=== PATIENT | female | born 1950 | race Caucasian/White ===

== ENCOUNTER 2016-09-29 09:50 | Outpatient (CLI) | payer OTHER ==
[2015-04-08 06:30] VITALS: BP 145/71
--- NOTE | 2016-09-30 11:19 | OP Clinic Progress Note ---
REFERRING PHYSICIAN: Dr. Nathalie Hernandez REASON FOR VISIT: Tiara Candelaria returns for follow up of seropositive rheumatoid arthritis and doing quite well. She is back on her Humira. She did not have it for 2 months due to insurance issues. Presently, she is not having any joint swelling, warmth, tenderness, morning stiffness or pain. Her right wrist is significantly improved since I put her back on 5 mg of prednisone. Back pain continues to be issue. She brings me copies of x-rays of her thoracic lumbar spine with hardware, which I had a chance to review. PAST MEDICAL HISTORY: 1. Hypertension. 2. Hyperlipidemia. 3. Sleep apnea. 4. GERD. 5. Osteoarthritis. 6. Rheumatoid arthritis. 7. Diabetes. 8. Hypothyroidism. PAST SURGICAL HISTORY: 1. Total knee replacement. 2. Hysterectomy. 3. . 4. Cholecystectomy. 5. Appendectomy. 6. Lumbar laminectomy, fusion, and hardware. ALLERGIES: 1. Cephalosporins. 2. Sulfa drugs. PRESENT MEDICATIONS: 1. Tenormin 50 mg daily. 2. Feosol 325 mg daily. 3. HydroDIURIL. 4. Synthroid 50 mcg daily. 5. Metformin 500 mg twice a day. 6. Humira 40 mg subcutaneous every other week. 7. Forteo daily. SOCIAL HISTORY: She is a ex-smoker. She is a retired brush clearing laborer. She is . REVIEW OF SYSTEMS: No fevers, chills, sweats, chest pain, shortness of breath, cough, wheezing, nausea or vomiting. No numbness or tingling of the extremities. She is using a cane. She has had no falls. PHYSICAL EXAMINATION: VITAL SIGNS: Weight: 180 pounds. Height: 5 feet 3 inches. T: 97.6, R: 12, Heart rate 68, BP: 167/80. HEENT: Sclerae are anicteric. Conjunctivae are pink. No stomatitis or glossitis. LUNGS: Clear bilaterally with no crackles or wheezing. HEART: Regular rhythm. Normal S1 and S2. ABDOMEN: Soft and nontender. VASCULAR: No edema or cyanosis. PERIPHERAL JOINTS: No synovitis at the DIPs, PIPs, MCPs, wrists, elbows, shoulders, hips, knees, ankles, and feet. Note her wrists are partially fused. She has severe restriction in lumbar and thoracic flexion and extension. DIAGNOSTIC STUDIES: Her labs from August 10 are reviewed. CBC was unremarkable. Sed rate was 25 and TSH was 1.5. IMPRESSION: 1. Seropositive rheumatoid arthritis at multiple sites, stable, on Humira. 2. High risk drug, no evidence of toxicity. 3. Chronic low back pain, status post laminectomy, fusion, and hardware. 4. Osteoporosis. Thank you very much. Best regards, cc: Dr. Nathalie SMALLS
== END 2016-09-29 09:52 ==
LOC: RHEU 09:50
PROVIDERS: ATTEND Internal Medicine
DX: M05.9 Rheumatoid arthritis with rheumatoid factor, unspecified (principal)
CPT/HCPCS: 99214; G0463

== ENCOUNTER 2016-10-12 12:56 | Outpatient (CLI) | payer OTHER ==
[2015-04-08 06:30] VITALS: BP 145/71
== END 2016-10-12 12:57 ==
LOC: PULMONARY 12:56
PROVIDERS: ATTEND Internal Medicine Critical Care Medicine
DX: G47.33 Obstructive sleep apnea (adult) (pediatric) (principal)
CPT/HCPCS: 99214; G0463

== ENCOUNTER → 2017-03-30 | Outpatient (CLI) | payer OTHER ==
[2015-04-08 06:30] VITALS: BP 145/71
--- NOTE | 2017-03-30 12:00 | OP Clinic Progress Note ---
REASON FOR VISIT: Tiara Candelaria returns for follow up on her seropositive rheumatoid arthritis. She is doing well on Humira alone having failed previous synthetic-disease modifying agents. She has no significant joint swelling, warmth, tenderness, morning stiffness. or pain. She still requires 5 mg of prednisone. Back pain has been stable. She has been under a little stress. Demetrius fell off the roof 12 feet onto his shoulder but he is doing better. He will have surgery on his shoulder. Otherwise, rest of the systems reviewed, no fevers, chills, sweats, chest pain, shortness of breath, cough, wheezing, nausea, vomiting, or diarrhea. PAST MEDICAL HISTORY: 1. Hypertension. 2. Hyperlipidemia. 3. Sleep apnea. 4. GERD. 5. Osteoarthritis. 6. Rheumatoid arthritis. 7. Diabetes. 8. Hypothyroidism. PAST SURGICAL HISTORY: 1. Total knee replacement. 2. Hysterectomy. 3. . 4. Cholecystectomy. 5. Appendectomy. 6. Lumbar laminectomy, fusion, and hardware. PRESENT MEDICATIONS: 1. Tenormin 50 mg daily. 2. Feosol 325 mg daily. 3. HydroDIURIL. 4. Synthroid 50 mcg daily. 5. Metformin 500 mg twice a day. 6. Humira 40 mg subcutaneous every other week. 7. Forteo subcutaneously daily. ALLERGIES: 1. Cephalosporins. 2. Sulfa drugs. SOCIAL HISTORY: She is an ex-smoker. She is a retired lab instructor. PHYSICAL EXAMINATION: GENERAL: On exam, she looks well. VITAL SIGNS: Weight: 180. T: 96.3, R: 20, heart rate of 87, BP: 150/75. HEENT: Sclerae are anicteric. Conjunctivae are pink. No stomatitis or glossitis. LUNGS: Clear bilaterally with no crackles or wheezing. HEART: Regular rate and rhythm. ABDOMEN: Soft and nontender. VASCULAR: No edema or cyanosis. PERIPHERAL JOINTS: No synovitis at the DIPs, PIPs, MCPs, wrists, elbows, shoulders, hips, knees, ankles, and feet. IMPRESSION: Seropositive rheumatoid arthritis, active and stable on the present regimen. No need for changes. She had labs done with her primary care physician. She is up to date on her vaccinations. PLAN: I will see her back in 6 months. Thank you very much. Best regards, cc: Dr. Nathalie Hernandez [facility]ITAL[facility]lya
== END ==
LOC: RHEU 09:23
PROVIDERS: ATTEND Internal Medicine
DX: M05.89 Other rheumatoid arthritis with rheumatoid factor of multiple sites (principal)
CPT/HCPCS: 99214; G0463

== ENCOUNTER 2017-09-28 08:54 | Outpatient (CLI) | payer OTHER ==
[2017-06-26 06:16] VITALS: BP 117/74
--- NOTE | 2017-10-01 10:17 | OP Clinic Progress Note ---
REASON FOR VISIT: Tiara Candelaria returns for follow up of seropositive rheumatoid arthritis. She is doing well from that point of view with no significant joint swelling, warmth, tenderness, or morning stiffness. No new deformities. She continues to use a walker with no great difficulty. She is presently on Humira alone. Since I last saw her, she was admitted to the hospital for a COPD exacerbation in the context of influenza B. She does seem to be significantly better and presently, she has no fever, chills, sweats, or chest pain and her shortness of breath has improved. She is not coughing or wheezing. No nausea, vomiting, or diarrhea. No numbness or tingling of her extremities. PAST MEDICAL HISTORY: 1. Hypertension. 2. Hyperlipidemia. 3. Sleep apnea. 4. GERD. 5. Osteoarthritis. 6. Rheumatoid arthritis. 7. Diabetes. 8. Hypothyroidism. 9. COPD. PAST SURGICAL HISTORY: 1. Total knee replacement. 2. Hysterectomy. 3. . 4. Cholecystectomy. 5. Appendectomy. 6. Lumbar laminectomy with fusion and hardware. PRESENT MEDICATIONS: 1. Humira 40 mg subcutaneous every other week. 2. Zoloft 100 mg daily. 3. Metformin 500 mg twice a day. 4. Synthroid 50 mcg daily. 5. Hydrochlorothiazide 25 mg daily. 6. Feosol 325 mg once a day. 7. Atenolol 50 mg twice a day. 8. Vitamin C 1000 mg daily. 9. Lisinopril 5 mg daily. 10. Loratadine as needed. 11. Magnesium oxide. 12. Omeprazole as needed. ALLERGIES: 1. Cephalosporin. 2. Sulfa antibiotics. PHYSICAL EXAMINATION: GENERAL: She is in no distress. VITAL SIGNS: T: 96.1, R: 20, heart rate 87, BP: 165/80. Room air pulse oximetry was 95%. HEENT: Sclerae are anicteric. Conjunctivae are pink. No stomatitis or glossitis. She is a little bit cushingoid. LUNGS: Clear bilaterally with no crackles or wheezing. HEART: Regular rate and rhythm. ABDOMEN: Soft and nontender. VASCULAR: No edema or cyanosis. PERIPHERAL JOINTS: Shows no active synovitis at the MCPs or wrists. However, she has fusion of her wrists. Elbows show some bursal swelling but no definite fluid. She has got a few ulcers healing on the right, worse on the left. Hips , knees, ankles, and feet are nontender. Note, she has decrease sensation of her lower extremities. IMPRESSION: 1. Seropositive rheumatoid arthritis, active and stable. Doing well. 2. High risk drug. No evidence of toxicity. 3. Chronic obstructive pulmonary disease (COPD), worse. 4. Rheumatoid nodulosis of both elbows. 5. Apparent neuropathy of lower extremities. PLAN: 1. I have asked her to wear elbow pads. 2. I will see her back in 6 months. Thank you very much. cc: Dr. Nathalie SMALLS
== END 2017-09-28 10:58 ==
LOC: RHEU 08:54
PROVIDERS: ATTEND Internal Medicine
DX: M06.9 Rheumatoid arthritis, unspecified (principal); Z79.899 Other long term (current) drug therapy; J44.9 Chronic obstructive pulmonary disease, unspecified; M06.321 Rheumatoid nodule, right elbow; M06.322 Rheumatoid nodule, left elbow
CPT/HCPCS: 99214; G0463

== ENCOUNTER 2018-04-26 08:55 | Outpatient (CLI) | payer OTHER ==
[2017-06-26 06:16] VITALS: BP 117/74
--- NOTE | 2018-04-26 15:19 | OP Clinic Progress Note ---
REASON FOR VISIT: Tiara Candelaria returns for follow up of seropositive rheumatoid arthritis. She was well when I last saw her in September. She has been taking Humira alone at that time. However, in February, she had surgery and her Humira was held. This was followed by a severe flare which was incapacitating. She bumped up her prednisone to 10 mg twice a day and has resumed her Humira. Her surgery involved revision of a past lumbar laminectomy, fusion, and hardware. This occurred on March 04. It has been beneficial. She presently has no pain in her back or radiating down the legs. She has had no further COPD exacerbation. Presently, she is not having any joint swelling, warmth, tenderness, morning stiffness, or pain, and no fever, chills, sweats, chest pain, shortness of breath, cough, wheezing, nausea, vomiting, or diarrhea. She continues to use a wheeled walker. ALLERGIES: She is allergic to: 1. Cephalosporins. 2. Sulfa antibiotics. PRESENT MEDICATIONS: 1. Humira 40 mg subcutaneous every other week. 2. Prednisone 10 mg twice a day. 3. Zoloft 100 mg daily. 4. Metformin 500 mg twice a day. 5. Synthroid 50 mcg daily. 6. Hydrochlorothiazide 25 mg daily. 7. Feosol 325 mg once a day. 8. Atenolol 50 mg twice a day. 9. Vitamin C. 10. Lisinopril 5 mg daily. 11. Loratadine. 12. Magnesium oxide. 13. Omeprazole. PAST MEDICAL HISTORY: 1. Hypertension. 2. Hyperlipidemia. 3. Sleep apnea. 4. GERD. 5. COPD. 6. Hypothyroidism. 7. Diabetes. 8. Rheumatoid arthritis. 9. Osteoarthritis. PAST SURGICAL HISTORY: 1. Total knee replacement. 2. Hysterectomy. 3. . 4. Cholecystectomy. 5. Appendectomy. 6. Lumbar laminectomy with fusion and hardware with recent revision. PHYSICAL EXAMINATION: GENERAL: She is comfortable. VITAL SIGNS: Weight: 175. T: 97.9, P: 70, R: 20, BP: 170/74 HEENT: Sclerae are anicteric. Conjunctivae are pink. No stomatitis or glossitis. LUNGS: Clear with no crackles or wheezing. HEART: Regular rate and rhythm. No extra heart sounds. ABDOMEN: Soft and nontender. VASCULAR: No edema or cyanosis. PERIPHERAL JOINTS: No synovitis at the DIPs, PIPs, MCPs, wrists, elbows, shoulders, hips, knees, ankles, and feet. She does have some swelling at the olecranon bursa. She has near fusion in both wrists. Hot Shot strength is about 4/5. IMPRESSION: 1. Seropositive rheumatoid arthritis, active. 2. Chronic obstructive pulmonary disease, stable. 3. Rheumatoid nodulosis, stable. PLAN: 1. Continue Humira. 2. I want her to start tapering her prednisone by 5 mg weekly. 3. I am going to see her back in 8 weeks. 4. If she fails to do so, we will need to consider adding disease-modifying agent to her biologic therapy. cc: Dr. Nathalie SMALLS
== END 2018-04-26 09:00 | disposition home or self-care (01) ==
LOC: RHEU 08:55
PROVIDERS: ATTEND Internal Medicine
DX: M05.9 Rheumatoid arthritis with rheumatoid factor, unspecified (principal); J44.9 Chronic obstructive pulmonary disease, unspecified
CPT/HCPCS: 99212; 99213; G0463

== ENCOUNTER 2018-12-02 16:10 | Outpatient (CLI) | payer OTHER ==
[2017-06-26 06:16] VITALS: BP 117/74
--- NOTE | 2018-12-03 06:26 | Diagnostic Imaging Report ---
TRACI ESQUIVEL (WING) - OP [facility] [id number] [id number] Report Submission Date: Dec 02, 2018 6:09:41 PM CDT Patient Study Name: ZEESHAN RIGGS Date: Dec 02, 2018 4:22:26 PM CDT Modality Type: DX Gender: F Description: FOOT 3 VIEWS OR MORE : 52 Institution: [facility] Physician: TRACI ESQUIVEL) - OP Exam: Left foot. History: 2Nd toe ulceration. AP, lateral and oblique view of the left foot are submitted. Questionable erosive changes at the head of the 1st metatarsal is noted. Subluxation at the 2nd metatarsophalangeal joint is noted. Degenerate changes at remaining interphalangeal joints are noted. Soft tissue swelling over the 2nd digit is noted. Degenerate changes at the talonavicular joint is also noted. Spur off the plantar surface of the calcaneus is noted. Impression: Questionable erosive changes at the head of the 1st metatarsal. Soft tissue swelling over the 2nd digit. Questionable subluxation at the 2nd metatarsophalangeal joint. Three Phase scintigraphy or MRI may be beneficial to further evaluate. Electronically signed on Dec 02, 2018 6:09:41 PM CDT by: Manpreet SMALLS
== END 2018-12-02 16:12 ==
LOC: RAD 16:10
PROVIDERS: ATTEND Nurse Practitioner Family
DX: L97.529 Non-pressure chronic ulcer of other part of left foot with unspecified severity (principal)
CPT/HCPCS: 73630

== ENCOUNTER 2018-12-05 10:29 | Outpatient (CLI) | payer OTHER ==
[2017-06-26 06:16] VITALS: BP 117/74
--- NOTE | 2018-12-13 07:57 | OP Clinic Progress Note ---
DATE OF VISIT: 12/05/2018 SUBJECTIVE: Tiara Candelaria is a 68-year-old female presenting today in a wheelchair with I believe a family member for a referral from Anay Sterling NP for a left second toe ulcer that has been present for 6-8 weeks. The patient has had this ulcer for 6-8 weeks and they have been treating with peroxide wash as well as antibiotic ointment and a Band-Aid daily. She has had a hammertoe contracture of the second toe which is overriding the first toe for over 1 year and the second toe began having a red appearance to it about 6-8 weeks ago. She has obtained x- rays with questionable erosive changes at the head of the first metatarsal which is not of any strong concern at this time. She also has subluxation at the second metatarsophalangeal joint noted of the left foot and degenerative changes in the IPJs of the toe. She also has soft tissue swelling of the second toe. Degenerative changes are also noted at the talonavicular joint which is not of any great concern to the patient right now. MRI or 3-phase bone scan may be beneficial for further evaluation according to the radiologist. There was no MRI that has been performed at this time. The patient is here for establishing care for this left second toe. She suggests that she is fine if this toe needs to be amputated and she is ready to do that if needed. The patient has had a recent pneumonia about 1 month ago when she had a chest x- ray done at that time. She denies any cardiac issues. She does admit to a heart murmur which was present when she was born and has not been anything significant. She admits to rheumatoid arthritis, diabetes mellitus, blood pressure issues, thyroid issues, increased cholesterol issues and sleep apnea for which she uses a CPAP nightly. She has had recent eye surgery by Dr. Mcmanus at [facility] and has had complications with that requiring 1 or 2 emergent repeat surgeries. She currently has a patch over her eye at this time. Her primary care physician is Anay Sterling NP. The patient does not admit to any fevers, chills, nausea, vomiting, shortness of breath or chest pain at this time. OBJECTIVE: Vitals: Temperature 98.0, heart rate 93, respiration rate 16, blood pressure 117/70. O2 saturation is 90% on room air. Vascular: Slightly palpable 1+ DP and PT pulses, left foot. Capillary refill time is less than 3 seconds to the toes and is quite brisk, even at the second toe, left foot. There is no hair growth noted. There is mild edema noted at the left second toe. There is no other significant edema noted. Dermatologic: There is a small ulcer overlying the left second toe proximal interphalangeal joint. This ulcer probed directly to bone which is easily palpated and actually able to be visualized. There is no purulence or malodor noted. There is mild serous drainage from the wound and bubbles with mobility of that joint. It should be noted her most recent x-rays were obtained quite recently on 12/02/18. It does not appear that there has been any significant change since her most recent time of x-rays clinically. There are no other skin lesions or open lesions noted to the left foot. There is mild warmth and definite erythema noted to the left second toe. There is no purulence noted. Musculoskeletal: There is digital contracture noted at the second MPJ with dorsiflexion contracture as well as plantar flexion contracture at the PIPJ of the left second toe. This toe is overriding the first toe slightly. There are also digital contractures noted at toes 3, 4 and 5 as well as hallux valgus deformity of the left great toe which is somewhat mild. Neurologic: Light touch sensation is absent in the left foot. ASSESSMENT AND PLAN: 1. Left second toe diabetic foot ulcer. 2. Left hammertoes #2 through #5. 3. Left hallux valgus. 4. Diabetes mellitus type 2. 5. Peripheral neuropathy, left lower extremity. 6. Rheumatoid arthritis. PROCEDURE #1: Sharp debridement of left second toe ulcer dorsal PIPJ with a #15 blade was performed to muscle layer. The edges of the wound were also debrided giving evidence to minor bleeding which is a positive thing. Bleeding was controlled with pressure. Dressings were applied consisting of triple antibiotic ointment and a Band-Aid. The patient will continue to treat this with antibiotic ointment and a Band-Aid daily at this time. A long discussion was had with the patient regarding the concern for an open wound probing to bone that has been present for 6-8 weeks. I recommended obtaining an MRI of the left foot without contrast to see if there is any obvious signs of osteomyelitis. The patient is agreeable to doing this and she is going to [place] anyway tomorrow so we were able to get that set up for tomorrow. The patient also had a long discussion regarding the difficulty in healing this wound if there is any sort of infection there as well as the possibility of needing to obtain further arterial studies to determine if she will heal this. Dependent on the results of the MRI, if there is infection in the bone we will have a stronger discussion regarding arterial studies and continued local wound care with IV antibiotics for 6 weeks versus possible left second toe amputation. I would recommend left second toe amputation more than likely as this will be very difficult to heal this wound as her blood flow is not wonderful but it is perhaps possible and good enough to heal it. I believe that due to the HANDLE [employer]KER being fairly immediate to the toes as well as palpability of the pulses of the left foot that she would heal a left second toe amputation if needed. The patient had a prescription for doxycycline 100 mg daily x14 days dispensed. We will see if this helps with any of the erythema on the left second toe. We also reviewed x-rays today visually, and the read by the radiologist. We discussed with the patient the importance of taking her doxycycline at least 4 hours apart from any magnesium or iron-containing supplements that she has currently. The patient states she would rather not take the supplements anyway. The patient admitted being on prednisone 20 mg per day for years and she therefore would likely need a cortisol boost with hydrocortisone before surgery. We will need to keep this in mind. She also has rheumatoid arthritis and may require cervical x-rays of her neck in case we need to do surgery. We will await results of the MRI and the patient will bring a CD for us to review at our next visit. We will make sure the patient sees us next week on Sunday for follow- up. We could even see her on Sunday in the [facility] for follow-up if needed to see if she is improving and review her MRI results. If we do need to consider surgery and if we are able to obtain any guidance regarding the timeframe from Dr. Mcmanus and whether or not we can go forward with treating the toe with a possible amputation if needed then we will schedule her for a preop appointment. We will strive to reach Dr. Mcmanus as well as RIGO Garcia regarding further information from them including any recent A1C that was performed which she had labs done recently according to the patient. We will attempt to get this information and we will see the patient next week on Sunday or Sunday. Huey HacnockP.M. (Dictated/Not Signed) Maynor Job#: [id number]
== END 2018-12-05 11:00 ==
LOC: POD 10:29
PROVIDERS: ATTEND Podiatrist Foot & Ankle Surgery
DX: E11.621 Type 2 diabetes mellitus with foot ulcer (principal); L97.529 Non-pressure chronic ulcer of other part of left foot with unspecified severity; M20.42 Other hammer toe(s) (acquired), left foot; M20.12 Hallux valgus (acquired), left foot; G90.09 Other idiopathic peripheral autonomic neuropathy; M06.9 Rheumatoid arthritis, unspecified
CPT/HCPCS: 11042; 99213

== ENCOUNTER 2019-01-02 07:27 | Outpatient (CLI) | payer OTHER ==
[2017-06-26 06:16] VITALS: BP 117/74
--- NOTE | 2019-01-03 09:22 | History and Physical Report ---
ZEESHAN RIGGS ADMISSION#.: [id number] : 1950 DATE OF VISIT: 01/02/2019 HISTORY AND PHYSICAL CHIEF COMPLAINT: Left second toe ulcer. HISTORY OF PRESENT ILLNESS: The patient presented to me first back in November for a left second toe ulcer that had suddenly swelled up and became infected. The patient has had this wound for quite some time but it became infected and she was concerned about it and so she came in for a visit. The patient had an extensive workup with x-rays, wound care and subsequent MRI. The MRI suggested osteomyelitis in the left third and fourth metatarsal heads I believe, but not in the second toe which was inconsistent with the clinical appearance of things. Due to this concern and the likelihood of a second toe amputation versus IV antibiotics for 6 weeks, and the patient preferring to do the amputation instead, we decided to get a Ceretec white blood cell labeled scan to check a more strong test for osteomyelitis in the left second toe as well as to make sure there was none in the left foot third and fourth metatarsal heads. The patient had this test performed recently as well as arterial Dopplers as she is diabetic with faintly palpable pulses. She has good capillary refill time in the feet and her arterial Dopplers were returned as fantastic with triphasic flow down to the feet. Her Ceretec scan also came back and we discussed that with the patient today and the positive second toe osteomyelitis of the left foot but no mention of any osteomyelitis elsewhere. The patient is here for follow-up and for plan for surgical amputation of the left second toe. The patient has a history of rheumatoid arthritis, diabetes mellitus type 2, sinus infections that are chronic and current, hypertension, gastroesophageal reflux disease, hyperlipidemia, hypothyroidism and sleep apnea. The patient also has ALLERGIES TO CEPHALOSPORINS AND SULFA. The patient does not admit to any fevers, chills, nausea, vomiting, shortness of breath or chest pain. 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 She is overall healing and doing much better with that. She did speak with Dr. Mcmanus who did the eye surgery and discussed with him the possibility of having surgery done soon by us and Dr. Mcmanus stated that should not be a problem at all and they are completely unrelated so he felt fine with her going forward. We will leave it up to her primary care, Anay Sterling, to give approval as well as her form block maker, Dr. Callahan. PAST MEDICAL HISTORY: See above. 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 These are most of the procedures that she has had performed. She denies any history of anesthesia issues. FAMILY HISTORY: Her father had cancer of some kind but they are not sure which and he passed from that. Her mom has hypertension and thyroid issues. SOCIAL AND OCCUPATIONAL HISTORY: The patient does have stairs at home but she stays on the main level and uses a wheelchair and has a ramp to get into the home and out of the home. She does walk some in the home but uses her furniture as help to get around. She was encouraged today to use the walker that she has at home when she is placed in a surgical shoe after surgery to help her be more stable. The patient agreed. REVIEW OF SYSTEMS: Overall, the patient is feeling well without any concerns. Skin: Left second toe wound and right lower lateral leg wound that was new as of yesterday from bumping it on her wheelchair, and she states it is doing fine with a Band-Aid over it. Eyes: Vision is improving, and no pain from surgery. Cardiovascular: No palpitations or chest pain. Gastrointestinal: No belly pain. Positive diarrhea from antibiotics, which we are changing. No pain with bowel movements or blood in the bowels. Neurologic: There is some nerve pain on the left side and down the leg as well as some newer pain in the right arm. She describes that as numbness and tingling. This was mentioned to the anesthesia team today. Genitourinary: No pain and no blood in the urine. Ears, nose and throat: There is some swallowing difficulty occasionally with food or water. She has not had this worked up. This was also mentioned to Anesthesia today. There is some sinus pain at times in her face where she has had chronic sinus infections. Pulmonary: There is no pain, difficulty breathing or shortness of breath. Musculoskeletal: Negative for any significant joint or muscle pain. Psychiatric: Positive for depression or anxiety. She is on medication for this. CURRENT MEDICATIONS: The patient will bring a list tomorrow which will be left on the desk so that we can input the medications completely. ALLERGIES AND REACTIONS: SULFA CAUSES ITCHING AND BASED ON LOOKING AT THE CHART THE SECOND WHICH SHE KNEW STARTED WITH A C LOOKS TO BE CEPHALOSPORINS. PERTINENT PHYSICAL EXAM: Mental status: The patients mental status is awake, alert and oriented x3. Head and neck: Atraumatic, normocephalic. Eyes: The patient recently had corneal transplant surgery and it is obvious that something is slightly different about her right eye, however, she has extraocular muscles that move in all directions appropriately. Heart: Normal S1 and S2 rhythm. Neurologic: Light touch sensation is absent in the toes bilaterally. Ears, nose and throat: No obvious masses, drainage of any kind or tracheal deviation. The patient states she has some swallowing difficulty at times but this was not tested today. Lungs: Clear to auscultation bilaterally. Vascular: Faintly palpable DP and PT pulses, left foot. Capillary refill time is less than 3 seconds to the toes. There is mild edema noted in the left second toe still. Dermatologic: There is a small open lesion with no drainage at this time but there is surrounding erythema that is mild about the wound on the dorsal aspect of the PIPJ of the left second toe still. There is no purulence or malodor noted. This has been probing to bone. Musculoskeletal: There is no pain on palpation noted bilaterally. There is a digital contracture of the left second toe where it overrides the first toe on the left foot. There are mild hallux valgus deformity as well noted on the left foot. The patient also has 3/5 plantar flexion of the left ankle versus 5/5 dorsiflexion inversion and eversion of those joints. There is also slight tenderness with pressing at the maxillary sinuses on the right side which is consistent and chronic for the patient, according to her. Lymph: There are no palpable lymph nodes under the jaw or pre or postauricular. ASSESSMENT AND PLAN: 1. Left second toe osteomyelitis. 2. Left second toe diabetic foot ulcer. 3. Rheumatoid arthritis. 4. Long history of steroids (immunosuppressed). It was noted today by the patient that she is having significant diarrhea after being on the doxycycline for a couple weeks now. I told her I would like to keep her on an antibiotic going forward as we are trying to keep things safe until we are able to do surgery and remove the second toe. The patient is understanding of this. We will attempt to call in an antibiotic today to her pharmacy which is I believe [facility], as long as we can find something that wont interact with her several medications or her allergies. It is possible that this will be difficult to do and we may need to continue the doxycycline and encourage probiotics and lots of water in the meantime. We will see what we can do today. The plan for surgery is for a left second toe amputation that we will hopefully plan on doing on 01/15/19. An in depth consent as well as verbal and pictorial was described to the patient and the risks and benefits were discussed that include but are not limited to bleeding, infection, possible nonhealing of the skin requiring a more proximal transmetatarsal amputation, sepsis, loss of limb and loss of life. The patient understands and has agreed both by written and verbal consent to go forward with a left second toe amputation. We discussed in depth that she could do IV antibiotics for at least 6 weeks but this does risk injury and damage to her kidneys and she states that she is tired of this toe and would rather have the toe removed. We discussed the reason and purposes for the arterial Dopplers which were triphasic flow down to the ankles. We also discussed the Ceretec scan that was positive for second toe osteomyelitis and did not mention any issues at the metatarsal heads. I discussed with the Anesthesia team this patient in depth and they have agreed that they do not need a chest x-ray but they would like an EKG still for this patient. An EKG has been ordered and she will be asked to obtain that in the next 5 days so that we can have that before surgery to make sure she is healthy and okay to go. I also discussed with the Anesthesia team regarding whether or not we need cervical x-rays of the neck due to her rheumatoid arthritis and they stated they do not need those at this time. We also discussed the possibility of using Solu-Medrol before surgery the morning of to boost her immune system as she has been on a long history of steroids. The Anesthesia team stated that we will be able to do that and they can do that on surgery morning. The patient will bring her medicine list to clinic on Sunday and we will need to call her and go over that next week about which medications to stop. She was also encouraged to contact her form block maker whom she is seeing next week and find out what medicines they would like her to stop and when before surgery in order to prepare accordingly. The patient will speak to the form block maker about this. We will seek clearance from her primary care provider, Anay Sterling, as well as her form block maker, Dr. Callahan from [facility]. The patient has no further questions or concerns at this time. We will plan on a MAC anesthesia with local with possibility of an LMA, etc. as needed by Anesthesia. The patient will get a surgical shoe at surgery and will need to wear that for 2-6 weeks while she is healing. She has been encouraged to try and stay off of it as much as possible the first couple weeks while the stitches are in, in order to prevent dehiscence. We had a strong in depth conversation with the patient and she is understanding fully of the plan for surgery and postoperative care and the reason for it at this time and she is looking forward to getting it done. She asked whether or not this toe wound and infection is causing infection elsewhere in the body or if the bodys infections are causing infection in the toe and I discussed the likelihood of them being unrelated. She is immunosuppressed from prednisone for a long time and this more likely is the cause of much of her infection but it is unsure as was explained to the patient. The patient had no further questions or concerns at this time and was happy with the visit today. She knows that we will plan for surgery on January 15 in the morning but we will not be able to give a for sure until we get things processed through all of our side and insurance, etc. We will submit all of our paperwork as soon as possible to get that going. The patient will obtain an EKG and we will obtain her most recent labs that consisted of a CBC, CMP and A1C from what we understand from the patient. She states her A1C was 6-something most recently. We will obtain these labs and have them ready for surgery as well. Again, we will call in a prescription to [facility] today and I will see if I can figure out something besides doxycycline today. ADDENDUM: Upon further consideration, the patient is doing very well with respect to doxycycline and how it is helping on the toe and the infection and keeping it at bay. We will call the patient and discuss with her some other options worth considering the doxycycline with respect to the time of day she is taking it, not taking with dairy products and so forth. We will discuss this with her and ask her to continue and we will call in another 2 weeks of doxycycline at this time in order to carry her through until surgery. She is to notify us next week if she is continuing to have the diarrhea issues at that time. We will call that into the [facility] today and let the patient know she can get that picked up and continue those. Huey HancockP.M. (Dictated/Not Signed) Maynor Job#: [id number] & [id number] MTDD
== END 2019-01-02 07:55 ==
LOC: POD 07:27
PROVIDERS: ATTEND Podiatrist Foot & Ankle Surgery
DX: M86.172 Other acute osteomyelitis, left ankle and foot (principal); E11.621 Type 2 diabetes mellitus with foot ulcer; L97.509 Non-pressure chronic ulcer of other part of unspecified foot with unspecified severity; M06.9 Rheumatoid arthritis, unspecified; Z92.241 Personal history of systemic steroid therapy

== ENCOUNTER 2019-01-30 09:15 | Outpatient (CLI) | payer OTHER ==
[2017-06-26 06:16] VITALS: BP 117/74
--- NOTE | 2019-02-04 13:48 | OP Clinic Progress Note ---
SUBJECTIVE: Tiara Candelaria is a 68-year-old female presenting to the clinic today for her first followup postop appointment from surgery that was performed on 01/22/2019 where she had a left second toe amputation performed. The patient has left the dressings clean, dry and intact and states that she is doing great down in her foot. She does admit to some recent nausea that she states is typical with this weather with her rheumatoid arthritis. She also admits that her foot got stepped on by a young girl that only weighs about 20 pounds and she has some bruising, but she states she does not want any sort of x-rays as it does not hurt her at all in her foot. The patient does not admit to any fevers, chills, shortness of breath or chest pain. She does have some nausea that we discussed above. OBJECTIVE: Vitals: Temperature 97.6, heart rate 94, respiration rate 16, blood pressure 125/99. O2 sat 98% on room air. Vascular: Palpable DP and PT pulses, left foot. HAIR AND MAKEUP DESIGNER less than 3 seconds to the toes of the left foot. There is no real edema noted, left foot. Dermatologic: There is mild ecchymosis noted on the toes of the distal left foot. The suture site where the left second toe amputation was performed is well coapted without strangulation. There are no signs of erythema, warmth or fluctuance noted. There is no drainage noted. The skin appears to be healing beautifully. Musculoskeletal: There is no pain on palpation noted. There are no other gross abnormalities noted, left foot, outside of the left second toe amputation. Neurologic: Light touch sensation is diminished to the toes, left foot. ASSESSMENT AND PLAN: Postop care/aftercare following surgery (date of surgery 01/22/2019, left second toe amputation). Dressings were changed today and Betadine-soaked Adaptic, 4 x 4 gauze, Kerlix and a 4-inch Deng wrap were applied. We did not have the path report when the patient was seen today, but we did receive it after she came and it did show evidence of acute and chronic osteomyelitis of that left second toe that was removed. We will notify the patient at her next visit regarding the path report. Leave the dressings clean, dry and intact and we will see her next week for a one-week followup where we will likely remove the sutures at that time, as long as the skin continues to look great and heals. I do not believe we ever obtained x-rays of the left foot after surgery, so we will also see if we can get x-rays next week just to show that the toe was amputated and that there was nothing remaining of concern. We will plan on doing that next week as well. Krystian Min D.P.M. /Accutype [id number] Job #[id number] cjd MTDD
== END 2019-01-30 09:45 ==
LOC: POD 09:15
PROVIDERS: ATTEND Podiatrist Foot & Ankle Surgery
DX: Z48.89 Encounter for other specified surgical aftercare (principal)
CPT/HCPCS: 99213

== ENCOUNTER 2019-02-06 08:18 | Outpatient (CLI) | payer OTHER ==
[2017-06-26 06:16] VITALS: BP 117/74
--- NOTE | 2019-02-07 13:57 | Diagnostic Imaging Report ---
CIERRA LANGLEY [facility] [address] [facility] [address] [place] [address]. [id number] Report Submission Date: Feb 06, 2019 9:25:28 AM CDT Patient Study Name: ZEESHAN RIGGS Date: Feb 06, 2019 9:04:10 AM CDT Modality Type: DX Gender: F Description: TOES 2 VIEWS OR MORE : 52 Institution: [facility] Physician: CIERRA LANGLEY Exam: Left toes. History: Previous 2nd toe amputation. AP and lateral view of the left toes are submitted. Previous amputation at the 2nd metatarsophalangeal joint is noted. Subtle erosive changes adjacent to the 1st metatarsophalangeal joint is noted. Degenerate changes at the interphalangeal joints are noted. Erosive changes at the heads of the 3rd and 4th metatarsals are noted. Soft tissue swelling about the foot is noted. Impression: Previous amputation at the 2nd metatarsophalangeal joint. Erosive changes adjacent to the 1st metatarsophalangeal joint and at the heads of the 3rd and 4th metatarsal. MRI may be beneficial to further evaluate. Electronically signed on Feb 06, 2019 9:25:28 AM CDT by: Manpreet SMALLS
--- NOTE | 2019-02-12 09:46 | OP Clinic Progress Note ---
DATE OF VISIT: 02/06/2019 SUBJECTIVE: Tiara Candelaria is a 68-year-old female presenting to the clinic today for followup of left second toe amputation that was performed on 01/22/2019. She has left the dressings clean, dry and intact and presents today for likely suture removal. She does not admit to any fever, chills, nausea, vomiting, shortness of breath or chest pain. She denies any pain in the foot at this time. OBJECTIVE: Vitals: Temperature 98.0 degrees Fahrenheit, heart rate 95, respiration rate 16, blood pressure 89/53. O2 saturation is 97% on room air. Vascular: Palpable DP and PT pulses, left foot. Capillary refill time is less than 3 seconds to the toes of the left foot. There is no edema noted except for mildly at the amputation site, left foot. Dermatologic: There is no erythema or ecchymosis noted left foot. There are no signs of erythema or warmth or fluctuance or any drainage noted. Sutures were intact and were removed completely today. The skin looked healed prior to removal of the sutures, however, there is a very small area medially with some gaping between the skin edges when the skin is slightly pulled. Steri-Prep and Steri-Strips were applied today. Musculoskeletal: There is no pain on palpation noted. No other gross abnormalities noted of left foot outside of the again left second toe amputation that was performed previously. Neurologic: Light touch sensation is diminished to the toes, left foot. ASSESSMENT AND PLAN: 1. Postop care (status post second toe amputation left foot 01/22/2019). X-rays were ordered two views of the toe left foot to demonstrate complete amputation of the second toe as this was not performed just after surgery like it should have been. I forgot to have that done immediately after surgery, so we are doing it today upon permission of the patient. If there are any concerns, will let the patient know. The sutures were removed today and Steri-Prep and Steri-Strips were applied due to a small bit of gaping laterally at the skin edges when the skin is pulled. The patient understands this and knows that we cannot have her get it wet yet and that we need to give it some more time to finish healing there. Return to clinic in one week for follow-up dressing change. We will likely leave the Steri-Strips intact so that we do not interrupt any healing there. We will just change the dressings over the top to keep them clean and to make sure she is not showing any signs of infection. The patient will return in one week for follow up and leaving the Steri-Strips intact. We will check for skin healing in two weeks from now after next week's dressing change. The patient will notify us of any issues. We will also follow up on x-rays from today that should demonstrate complete amputation of the left second toe. Huey HancockP.M.(Dictated/not signed) /Accutype [id number] /mab MTDD
== END 2019-02-06 08:50 ==
LOC: POD 08:18
PROVIDERS: ATTEND Podiatrist Foot & Ankle Surgery
DX: Z48.817 Encounter for surgical aftercare following surgery on the skin and subcutaneous tissue (principal)
CPT/HCPCS: 73660; 99212; G0463

== ENCOUNTER 2019-02-13 08:25 | Outpatient (CLI) | payer OTHER ==
[2017-06-26 06:16] VITALS: BP 117/74
--- NOTE | 2019-02-14 14:47 | OP Clinic Progress Note ---
DATE OF VISIT: 02/13/2019 SUBJECTIVE: Tiara Candelaria is a 68-year-old female presenting to clinic today for followup for postop care in her global period for a left second toe amputation that was performed on 01/22/2019. The patient denies any pain and states she is doing well. She is having some overall tiredness and not feeling great, but denies any pain, shortness of breath, fevers, chills. She overall feels okay, but admits that she is not drinking enough water. She was encouraged to be drinking lots more water, as her blood pressure was a little bit low today. The patient does not admit to any fevers, chills, nausea, vomiting, shortness of breath or chest pain. OBJECTIVE: Vitals: Temperature 98.9 degrees Fahrenheit, heart rate 92, respiration rate 16, blood pressure 110/47. O2 saturation is 94% on room air. Vascular: Palpable DP and PT pulses, left foot. Capillary refill time is less than 3 seconds to the toes of the left foot. There is no edema noted, left foot. Dermatologic: There is no erythema or ecchymosis noted on the left foot. The Steri-Strips were removed today as I will not be here next week and I wanted to make sure that she is improving. The skin is holding together better and has healed centrally and laterally, but the medial site is holding together, but I believe it feels like it will pull apart if I pull much harder. It was left intact where it is together. There are no signs of infection at all. Musculoskeletal: There is no pain on palpation noted. There were no other gross abnormalities noted except for left second toe amputation that was performed previously. Neurologic: Light touch sensation is diminished to the toes, left foot. ASSESSMENT AND PLAN: 1. Postop care (status post second toe amputation of the left foot on January 22, 2019). X-rays were reviewed and they demonstrated that the entire second toe was amputated without any obvious concern at the second metatarsal head, left foot. The patient is aware that the toe was removed in its entirety based on x-rays. The site was cleansed with alcohol swabs and then a medical glue was then applied to the incision site to help seal it from getting wet in any way. The patient had this dry and then a Band-Aid was placed over the top of it. She is okay to weight bear in a surgical shoe. She is now okay to get it wet in the shower. The patient will continue to keep a Band-Aid over it and allow this to finish healing underneath. She will return to clinic in two weeks for followup and hopefully we can get her out of a surgical shoe at that time. If there are any issues, she knows that I will not be here next week and she needs to go to the ER if any issues. Huey HancockP.M.(Dictated/not signed) /Accutype [id number] /mab MTDD
== END 2019-02-13 08:55 ==
LOC: POD 08:25
PROVIDERS: ATTEND Podiatrist Foot & Ankle Surgery
DX: Z47.89 Encounter for other orthopedic aftercare (principal)
CPT/HCPCS: 99212; G0463

== ENCOUNTER 2019-02-27 08:59 | Outpatient (CLI) | payer OTHER ==
[2017-06-26 06:16] VITALS: BP 117/74
--- NOTE | 2019-03-03 13:42 | OP Clinic Progress Note ---
DATE OF VISIT: 02/27/2019 SUBJECTIVE: Tiara Candelaria is a 58-year-old female presenting to the clinic today for a follow up and postop care for a left second toe amputation that was performed on January 22, 2019. She is still in her global period. She also presents with a new eschar noted on the left dorsal mid foot over a bony prominence. This is new and she is not sure why it has developed. She does not use socks with the surgical shoe. She has been using the surgical shoe up until this point. The patient does not admit to any fevers, chills, nausea, vomiting, shortness of breath or chest pain. OBJECTIVE: Vitals: Temperature 97.9 degrees Fahrenheit, heart rate 102, respiration rate 18, blood pressure 120/68. O2 saturation is 99% with 3 liters oxygen per nasal cannula. Vascular: Palpable DP and PT pulses, left foot. Capillary refill time is less than 3 seconds to the toes of the left foot. There is no edema noted in the left foot. Dermatologic: The incision site has a small amount of Super Glue still present which was removed today revealing a completely healed and intact strong skin closure. I am unable to pull it open today. The patient has no erythema or signs of infection near that area. There is a small eschar noted over the left dorsal mid foot over a bony prominence in the tarsal bones. The patient has no erythema or drainage noted on my exam today. It appears dry and fairly stable. We are not sure where this came from, but she is encouraged to keep a good eye on this. There are no other concerning areas bilateral feet upon visual exam of both feet today. Musculoskeletal: There is no pain with palpation noted at the incision and surgery site. There is no pain with palpation noted at the eschar site left dorsal mid foot either. Neurologic: Light touch sensation is diminished to the toes, left foot. ASSESSMENT AND PLAN: 1. Postop care (status post second toe amputation of the left foot on January 22, 2019). 2. Pre-ulcerative lesion with small eschar noted, dorsal left mid foot. I told the patient she is okay today in the whirlpool and she needs to keep a good eye on that small eschar to make sure that it does not open. If it does open she needs to begin using antibiotic ointment and a Band-Aid daily as well as to stop using the whirlpool bath and keep it dry. If there are any concerns they are to return to the clinic to see me as soon as possible. They would rather do an as needed appointment going forward at this time which I am okay with, so return to clinic as needed. Huey HancockP.M.(Dictated/not signed) /[employer] [id number] /mab MTDD
== END 2019-02-27 09:32 ==
LOC: POD 08:59
PROVIDERS: ATTEND Podiatrist Foot & Ankle Surgery
DX: Z48.89 Encounter for other specified surgical aftercare (principal); L97.529 Non-pressure chronic ulcer of other part of left foot with unspecified severity
CPT/HCPCS: 99213; G0463